=== PATIENT | male | born 1985 | race Caucasian/White ===

== ENCOUNTER 2017-12-16 07:50 | Emergency (ER) | payer OTHER ==
[2017-12-16 07:58] VITALS: O2SAT 100
[2017-12-16] MEDS ORDERED: Sodium Chloride 0.9% 1,000 ML IV ONE (08:10)
--- NOTE | 2017-12-16 08:12 | C.PDOC ---
History Of Present Illness 32 yo male come in for evaluation of epigastric pain gradually developed for past 2 days associated with nausea, non-bilious vomiting " after had certain food". Pt sts, was unable tolerate any PO intake for past 2 days, "feeling weak , dehydrated". Pt admits, similar sx in past. Otherwise, pt denies fever, chills , recent travel or known sick contact. dizziness, CP, SOB, dyspnea, palpitation , diaphoresis, hematemesis, diarrhea, melena, back pain, UTI sx. Ambulate to Ed for evaluation, not in any apparent distress. Time Seen by Provider: 12/16/17 07:54 Chief Complaint (Nursing): Abdominal Pain History Per: Patient Past Medical History Reviewed: Historical Data, Nursing Documentation, Vital Signs Vital Signs: Last Vital Signs Temp 98.7 F 12/16/17 10:38 Pulse 55 L 12/16/17 10:38 Resp 16 12/16/17 10:38 BP 135/84 12/16/17 10:38 Pulse Ox 100 12/16/17 10:49 - Medical History PMH: GERD Family History: States: No Known Family Hx - Social History Hx Tobacco Use: No Hx Alcohol Use: Yes Hx Substance Use: Yes - Immunization History Hx Tetanus Toxoid Vaccination: No Hx Influenza Vaccination: No Hx Pneumococcal Vaccination: No Review Of Systems Except As Marked, All Systems Reviewed And Found Negative. Constitutional: Negative for: Fever, Chills ENT: Negative for: Throat Pain Cardiovascular: Negative for: Chest Pain, Palpitations, Edema, Light Headedness Respiratory: Negative for: Cough, Shortness of Breath Gastrointestinal: Positive for: Nausea, Vomiting, Abdominal Pain. Negative for : Diarrhea, Melena, Hematochezia, Hematemesis Genitourinary: Negative for: Dysuria, Frequency Musculoskeletal: Negative for: Neck Pain, Back Pain Skin: Negative for: Rash Neurological: Negative for: Weakness, Numbness, Altered Mental Status Physical Exam - Physical Exam Appears: Well, Non-toxic, No Acute Distress Skin: Normal Color, Warm, Dry, No Rash Head: Normacephalic Eye(s): bilateral: PERRL Ear(s): Bilateral: Normal Nose: No Flaring, No Discharge Oral Mucosa: Moist, No Drooling Throat: No Erythema, No Drooling Neck: Normal ROM, Trachea Midline, Supple Cardiovascular: Rhythm Regular, No Murmur, No JVD Respiratory: No Decreased Breath Sounds, No Accessory Muscle Use, No Stridor, No Wheezing Gastrointestinal/Abdominal: Soft, Tenderness (mod epigastric and mild RUQ), No Distention, No Guarding, No Rebound Back: No CVA Tenderness Extremity: Normal ROM, No Deformity, No Swelling Neurological/Psych: Oriented x3, Normal Speech ED Course And Treatment - Laboratory Results Result Diagrams: 12/16/17 08:24 12/16/17 08:24 Lab Interpretation: Normal O2 Sat by Pulse Oximetry: 100 Pulse Ox Interpretation: Normal - CT Scan/US Gallbladder Other Rad Studies (CT/US): Radiology Report Reviewed CT/US Interpretation: Creator : Best Boucher MD. Dictator : Best Boucher MD. Oracle Database Consultant : Interactive Media Director : Best Boucher MD. Approver2 : Report Date : 12/16/2017 10:33:25. My Comment : . HISTORY: RUQ pain, vomiting. COMPARISON: Abdominal ultrasound dated 06/07/2014. TECHNIQUE: Sonographic evaluation of the right upper quadrant of the abdomen. FINDINGS: LIVER: Measures 17.0 cm in length. Increased echogenicity of the liver parenchyma. Echogenic structure in the anterior right hepatic lobe measuring 1.7 x 1.3 x 2.3 cm. No intrahepatic bile duct dilatation. GALLBLADDER: Unremarkable. No gallstones. COMMON BILE DUCT: Measures 5 mm. No stones. No dilatation. PANCREAS: Unremarkable as visualized. No mass. No ductal dilatation. RIGHT KIDNEY: Measures 10.6 x 5.8 x 5.3 cm in length. Increased echogenicity. No calculus, mass, or hydronephrosis. AORTA: No aneurysmal dilatation. IVC: Unremarkable. OTHER FINDINGS: None . IMPRESSION: Hepatic steatosis. Increased size of echogenic structure in the anterior right hepatic lobe. Contrast-enhanced MRI of the liver can be obtained for further evaluation as clinically warranted. Increased echogenicity of the right kidney. Progress Note: Pt was OBS in ED for 2.5 hours and reports moderate improvement in sx. On re-eval, pt is afebrile, hemodynamicaly stable. Non-toxic. Tolerate Po well in ED. ENT: no acute findings. neck: SUpple, (-) JVD. Lungs: CTA B/L , BS equal B/L. Abd: benign, (-) guarding, (-) rebound. back: (-) CVA tenderness. Neurologicaly intact. Blood work review and appears normal. US gallbladder (+) hepatic steatosis, no acute abnormalities. Pt clinical findings c/w epigastric pain, GERD. Pt advised. ref. to F/u with PMD, GI in2 -3 days for re-eavl. return if any new changes Disposition Counseled Patient/Family Regarding: Studies Performed, Diagnosis, Need For Followup, Rx Given - Disposition Referrals: [facility] [Outside] Tyrese Evans MD [Staff Provider] - Disposition: HOME/ ROUTINE Disposition Time: 10:39 Condition: STABLE Additional Instructions: BRAT diet- banana, rice, apple sauce, toast Encourage fluids AVOID ALCOHOL, SPICY GREASY FOOD, COFFEE, ORANGE JUICE FOR 2-3 WEEKS take medication as prescribed Follow up with PMD, Gastroenterology in 2-3 days for re-evaluation. return to ED if any worsening or new changes. Prescriptions: Metoclopramide [Reglan] 10 mg PO BID #6 tab Pantoprazole Sodium [Protonix] 40 mg PO DAILY #30 tablet.dr Instructions: Acid Reflux (Gastroesophageal Reflux Disease), Adult (DC) Forms: [employer] (Yakut) - Clinical Impression Clinical Impression: Epigastric abdominal pain, GERD (gastroesophageal reflux disease)
[2017-12-16] MEDS ORDERED: Sodium Chloride 0.9% 1,000 ML ONE (08:27)
[2017-12-16 08:34] LABS: BASO % 0.2 % (0.0-2.0); EOS % 0.2 % (0.0-4.0); HEMOGLOBIN 17.9 g/dL (12.0-18.0); LYMPH # 1.8 K/uL (1.0-4.3); LYMPH % 16.5 % (20.0-40.0); MEAN CELL VOLUME 89.4 fL (80.0-94.0); MEAN CORPUSCULAR HEMOGLOBIN 31.1 pg (27.0-31.0); MEAN CORPUSCULAR HGB CONC 34.8 g/dL (33.0-37.0); MEAN PLATELET VOLUME 7.9 fL (7.2-11.7); MONO # 1.1 K/uL (0.0-0.8); MONO % 10.7 % (0.0-10.0); NEUT # 7.7 K/uL (1.8-7.0); NEUT % 72.4 % (50.0-75.0); NRBC % 0.3 % (0.0-2.0); RBC 5.76 Mil/uL (4.40-5.90); RED CELL DISTRIBUTION WIDTH 12.8 % (11.5-14.5); WHITE BLOOD COUNT 10.6 K/uL (4.8-10.8)
[2017-12-16 08:43] LABS: ALB/GLOB RATIO 1.3 (1.0-2.1); ALBUMIN 4.9 g/dL (3.5-5.0); ALT/SGPT 60 U/L (21-72); AMYLASE 73 U/L (30-110); AST/SGOT 49 U/L (17-59); BLOOD UREA NITROGEN 15 mg/dL (9-20); CALCIUM 9.9 mg/dl (8.6-10.4); GFR AFRICAN-AMERICAN > 60; GFR NON-AFRICAN AMERICAN > 60; LIPASE 48 U/L (23-300)
[2017-12-16 09:22] LABS: URINE BILIRUBIN NEGATIVE (NEGATIVE); URINE BLOOD NEGATIVE (NEGATIVE); URINE CLARITY Clear (Clear); URINE COLOR Yellow (YELLOW); URINE GLUCOSE (UA) NORMAL (Normal); URINE LEUKOCYTE ESTERASE TRACE Leu/uL (Negative); URINE PROTEIN 1+ mg/dL (NEGATIVE); URINE UROBILINOGEN NORMAL mg/dL (0.2-1.0)
--- NOTE | 2017-12-16 10:35 | US ---
HISTORY: RUQ pain, vomiting COMPARISON: Abdominal ultrasound dated 06/07/2014. TECHNIQUE: Sonographic evaluation of the right upper quadrant of the abdomen. FINDINGS: LIVER: Measures 17.0 cm in length. Increased echogenicity of the liver parenchyma. Echogenic structure in the anterior right hepatic lobe measuring 1.7 x 1.3 x 2.3 cm. No intrahepatic bile duct dilatation. GALLBLADDER: Unremarkable. No gallstones. COMMON BILE DUCT: Measures 5 mm. No stones. No dilatation. PANCREAS: Unremarkable as visualized. No mass. No ductal dilatation. RIGHT KIDNEY: Measures 10.6 x 5.8 x 5.3 cm in length. Increased echogenicity. No calculus, mass, or hydronephrosis. AORTA: No aneurysmal dilatation. IVC: Unremarkable. OTHER FINDINGS: None . IMPRESSION: Hepatic steatosis. Increased size of echogenic structure in the anterior right hepatic lobe. Contrast-enhanced MRI of the liver can be obtained for further evaluation as clinically warranted. Increased echogenicity of the right kidney.
[2017-12-16 10:39] VITALS: BP 135/84; PULSE 55; RESP 16; TEMP 98.7
== END 2017-12-16 11:38 | disposition home or self-care (01) ==
LOC: C.ER 07:50
DX: K21.9 Gastro-esophageal reflux disease without esophagitis (principal); R10.13 Epigastric pain
CPT/HCPCS: 76705; 80053; 81001; 82150; 83690; 85025; 87086; 96361; 96374; 96375; 99284; C9113; J2405; J2765; J7030